=== PATIENT | female | born 1995 | race Caucasian/White ===

== ENCOUNTER 2019-06-23 09:05 | Emergency (ER) | payer BC, OTHER ==
[2019-06-23] MEDS ORDERED: Ketorolac Tromethamine 30 MG/ML VIAL ONE (09:44)
[2019-06-23] MEDS ORDERED: Bacitracin 1 PK ONE (09:55)
--- NOTE | 2019-06-23 10:01 | RAD ---
RIGHT HAND 3 VIEWS: HISTORY: Injury, right hand pain FINDINGS: There is a mildly displaced fracture involving the base of the proximal phalanx of the right thumb wi th involvement of the articular surface.
[2019-06-23] MEDS ORDERED: Dexamethasone 4 mg/ml Vial ONE (11:13)
== END 2019-06-23 11:15 | disposition home or self-care (01) ==
LOC: SCSER 09:05
DX: S62.511A Displaced fracture of proximal phalanx of right thumb, initial encounter for closed fracture (principal); S80.812A Abrasion, left lower leg, initial encounter; V89.2XXA Person injured in unspecified motor-vehicle accident, traffic, initial encounter
CPT/HCPCS: 96372; J1100; J1885

== ENCOUNTER 2019-07-25 09:58 | Outpatient (CLI) | payer BC ==
--- NOTE | 2019-07-25 11:19 | MRI ---
EXAM: MRI right thumb PROVIDED CLINICAL HISTORY: Pain status post injury COMPARISON: Radiographs 06/23/2019 FINDINGS: Displaced intra-articular fracture involving the dorsal base of the thumb proximal phalanx is redemon strated with associated marrow edema. The thumb flexor, extensor, abductor and abductor tendons appear intact. There is a small focus of increased signal intensity on fluid sensitive sequences within the substanc e of the ulnar collateral ligament and the midportion, suspicious for low-grade partial thickness interstitial tearing. There is no evidence for full-thickness UCL tear. The thumb MCP radial collater al ligament appears intact. The thumb IP joint appears unremarkable. Regional marrow and muscular signal appear otherwise normal. IMPRESSION: 1. Displaced intra-articular fracture involving the dorsal base of the thumb proximal phalanx. 2. Low-grade partial thickness interstitial tearing involving the ulnar collateral ligament of the th umb MCP joint.
== END 2019-07-25 09:59 | disposition home or self-care (01) ==
LOC: SCSMRI 09:58
PROVIDERS: ATTEND Orthopaedic Surgery Hand Surgery
DX: S62.511A Displaced fracture of proximal phalanx of right thumb, initial encounter for closed fracture (principal); S63.641A Sprain of metacarpophalangeal joint of right thumb, initial encounter

== ENCOUNTER 2019-08-08 09:31 | Day surgery (SDC) | payer BC ==
[2019-08-07 09:34] VITALS: BMI 41.5
[2019-08-08 10:26] LABS: #Eosinphils 0.2 thou/uL (0.0-0.7); #Lymphocytes 1.7 thou/uL (1.20-3.40); #Monocytes 0.4 thou/uL (0.11-0.59); #Neutrophils 3.5 thou/uL (1.40-6.50); %Basophils 0.5 % (0.0-1.0); %Lymphocytes 28.8 % (21.0-51.0); %Neutrophils 60.7 % (42.0-75.0); Hemoglobin 13.8 g/dL (12.0-16.0); Mean Corpuscular HGB CONC 32.3 g/dL (32.0-36.0); Mean Corpuscular Hemoglobin 29.9 pg (27.0-31.0); Mean Corpuscular Volume 92.7 fL (78.0-98.0); Mean Platelet Volume 7.3 fL (7.4-10.4); Platelet Count 288 thou/uL (130-400); RBC Distribution Width 11.6 % (11.5-14.5); White Blood Cell (WBC) Count 5.7 thou/uL (4.8-10.8)
[2019-08-08 10:31] LABS: BHCG - Serum Negative (NEGATIVE); Pregs Control Background? CLEAR/WHITE (CLR/WHITE); Pregs Control Bar Appear? YES (CONTROL BAR)
[2019-08-08] MEDS ORDERED: Lidocaine 1% PF 5 ML VIAL ONE (10:52)
[2019-08-08] MEDS ORDERED: Ketorolac Tromethamine 30 MG/ML VIAL ONE (10:52)
[2019-08-08] MEDS ORDERED: PROPOFOL 200 MG/20 ML VIAL ONE (10:52)
[2019-08-08] MEDS ORDERED: Dexamethasone 20 MG/5 ML VIAL ONE (10:52)
[2019-08-08] MEDS ORDERED: Ondansetron PF 4 MG/2 ML Vial ONE (10:52)
[2019-08-08] MEDS ORDERED: Midazolam HCl 2 mg/2 ml Vial ONE (13:17)
[2019-08-08] MEDS ORDERED: Fentanyl 100 MCG/2 ML VIAL ONE (13:17)
[2019-08-08] MEDS ORDERED: Sodium Chloride 0.9% 10 ML ONE (13:18)
[2019-08-08] MEDS ORDERED: Bacitracin Zinc Ointment 30 gm TUBE ONE (13:18)
[2019-08-08] MEDS ORDERED: Bupivacaine PF 0.5% 30 ML VIAL ONE (13:18)
--- NOTE | 2019-08-08 15:07 | RAD ---
RIGHT THUMB THREE VIEWS: HISTORY: ORIF right thumb. FINDINGS: Steinmann pin and small screw are placed, stabilizing the proximal phalanx fracture of the thumb. IMPRESSION: Image documentation for internal fixation changes involving the base of the proximal phalanx of the r ight thumb. POS: [facility]
--- NOTE | 2019-08-08 16:02 | OP ---
DATE OF PROCEDURE: 08/08/2019 PREOPERATIVE DIAGNOSIS: Displaced right thumb proximal phalanx base fracture involving both the insertion of the radial collateral ligament all the way of come into the dorsal one-half of the joint. It involved 2/3 of the dorsal base as well, intra-articular, it had partially healed but displaced. POSTOPERATIVE DIAGNOSIS: Displaced right thumb proximal phalanx base fracture involving both the insertion of the radial collateral ligament all the way of come into the dorsal one-half of the joint. It involved 2/3 of the dorsal base as well, intra-articular, it had partially healed but displaced. PROCEDURES PERFORMED: 1. Open reduction and internal fixation with callus removal and debridement of this fracture using K-wire and a 1.5 screw. 2. C-arm supervision. TOURNIQUET TIME: 41 minutes. ESTIMATED BLOOD LOSS: 10 mL. IMPLANT: Synthes 1.5 screw lag mold. DESCRIPTION OF PROCEDURE: After successful general endotracheal anesthesia, the limb was prepped and draped. The patient then had the C-arm brought into the field. After prepping and draping, we identified the fragment through the zigzag incision 1 cm on either side of fracture and then exsanguinated the limb. We then gave the patient a total of 20 mL of 0.5% Marcaine, 10 before the incision and 10 when we closed the incision. We carried the incision through skin and subcutaneous tissue, identified the retinaculum up to 3 mm radial to the extensor tendons. We removed it with a sharp [place] blade, dissected down to the capsule, released it, identified. We then looked inside the joint and saw the fracture fragment. First, we used a [place] blade to separate the partially healed callus and we used a curette to elevate it approximately 4 mm, which was approximately a millimeter and half more than its displacement. It was still hinge partially at its base and we then moved it slightly proximally and then held it with a clamp and saw that the joint was nearly anatomic. We then placed a K-wire through the junction of the mid-third, and then this held in excellent position along with a tenaculum clamp. We then passed 1 screw in the lag mold very just articular, but on radiographs did not appear to enter the joint and it held the remaining portion of the fracture. There was no instability. We irrigated, took C-arm, confirmed position did not appear to be all the way in the joint. We then cut the K-wire, obtained hemostasis after releasing tourniquet, closed the capsule with a running 3-0 Vicryl undyed, closed the retinaculum with a 5-0 Prolene interrupted mattress with every third locking stitch, and we were able to approximate the skin after obtaining hemostasis on a 4-0 nylon interrupted mattress pattern. The patient left the operating room without evidence of anesthetic or operative complication after applying a splint. Job ID: [id number]
== END 2019-08-08 17:00 | disposition home or self-care (01) ==
LOC: SDC 09:31
PROVIDERS: ATTEND Orthopaedic Surgery Hand Surgery
PROC: 0PSR04Z Reposition Right Thumb Phalanx with Internal Fixation Device, Open Approach (ICD-10-PCS; principal; 2019-08-08)
DX: S62.511A Displaced fracture of proximal phalanx of right thumb, initial encounter for closed fracture (principal); S63.641A Sprain of metacarpophalangeal joint of right thumb, initial encounter; Z79.899 Other long term (current) drug therapy; Z91.048 Other nonmedicinal substance allergy status
CPT/HCPCS: 76000; 84703; 85025; C1713; J0690; J1100; J1885; J2001; J2250; J2405; J2704; J3010; J3490; S0020